=== PATIENT | female | born 1970 | race Caucasian/White ===

== ENCOUNTER 2023-06-22 15:28 | Outpatient (CLI) | payer OTHER, SELFPAY ==
--- NOTE | ~2023-06-22 | MR_ITS ---
EXAMINATION: MR lumbar spine wo con DATE: 06/22/2023 17:06 INDICATION: Chronic right-sided low back pain and right hip pain TECHNIQUE: Magnetic resonance imaging (MRI) of the lumbar spine was performed without intravenous con trast. Sequences included sagittal T2-weighted FSE, sagittal T2-weighted FS FSE, sagittal T1-weighted FSE, and axial T2-weighted FSE. COMPARISON: None FINDINGS: 4 mm retrolisthesis L5 on S1. Alignment is otherwise normal. Vertebral body heights are normal. Norm al marrow signal. Mild disc height loss and annular fissure at L5-S1. The remaining more cephalad dis cs extending to T12-L1 are normal. The conus medullaris terminates at L1-L2. There is normal signal i n the caudal spinal cord. Paravertebral soft tissues are unremarkable. The following disc levels are specifically discussed: T12-L1: The disc does not extend beyond the endplate margin. There is mild bilateral facet joint oste oarthritis. There is no neural foraminal stenosis. There is no central canal stenosis. L1-L2: The disc does not extend beyond the endplate margin. There is mild bilateral facet joint osteo arthritis. There is no neural foraminal stenosis. There is no central canal stenosis. L2-L3: Small left foraminal zone disc protrusion. There is mild bilateral facet joint osteoarthritis. There is mild left neural foraminal stenosis. There is no central canal stenosis. L3-L4: Disc is mildly bulging. There is mild bilateral facet joint osteoarthritis. There is mild bila teral neural foraminal stenosis. There is mild central canal stenosis. L4-L5: Disc is mildly bulging. There is mild left and minimal right facet joint osteoarthritis. There is mild bilateral neural foraminal stenosis. There is no central canal stenosis. L5-S1: Disc is mildly bulging with superimposed annular fissure and small central disc protrusion. Th ere is mild bilateral facet joint osteoarthritis. There is mild right and mild to moderate left neura l foraminal stenosis. There is minimal central canal stenosis. IMPRESSION: 1. Minimal to mild lumbar spondylosis most prominent at L5-S1 where there is mild disc height loss wi th annular fissure. Reviewed, dictated and finalized at location A. S IMPRESSION: 1. Minimal to mild lumbar spondylosis most prominent at L5-S1 where there is mi ld disc height loss with annular fissure.
== END 2023-06-22 15:29 | disposition home or self-care (01) ==
DX: M54.50 Low back pain, unspecified (principal); M47.896 Other spondylosis, lumbar region
CPT/HCPCS: 72148